=== PATIENT | female | born 1980 | race Caucasian/White ===

== ENCOUNTER 2016-08-31 11:00 | Emergency (ER) | payer SELFPAY ==
[~2016-08-31] VITALS: Ht 175.3 cm; Wt 75.0 kg
[2016-08-31 11:20] LABS: BASOPHILS % (AUTO) 0 % (0-2); EOSINOPHILS % (AUTO) 1 % (0-4); LYMPHOCYTES # (AUTO) 1.9 X10^3; MEAN CORPUSCULAR HEMOGLOBIN 28.4 PG (26.0-34.0); MEAN CORPUSCULAR HGB CONC 33.9 g/dL (31.0-37.0); MEAN CORPUSCULAR VOLUME 84 FL (80-100); MEAN PLATELET VOLUME 10.5 FL (6.0-9.5); MONOCYTES # (AUTO) 0.4 X10^3; MONOCYTES % (AUTO) 5 % (3-11); NEUTROPHILS # (AUTO) 5.5 X10^3; NEUTROPHILS % (AUTO) 70 % (51-67); PLATELET COUNT 248 10^3uL (150-450); WHITE BLOOD COUNT 7.75 10^3uL (4.0-11.0)
[2016-08-31 11:39] LABS: ALBUMIN 4.7 g/dL (3.4-5.0); ANION GAP 22.5 MEQ/L (3-15); CALCULATED IONIZED CALCIUM 4.1 mg/dL (3.8-4.6); TOTAL PROTEIN 7.9 g/dL (6.4-8.5)
[2016-08-31] MEDS ORDERED: INSULIN LISPRO 1 UNIT/0.01 ML (HUMALOG) DOSE SC ONE (11:45)
[2016-08-31 13:47] VITALS: BP 118/80
== END 2016-08-31 12:51 | disposition home or self-care (01) ==
LOC: ED 11:04
DX: M22.41 Chondromalacia patellae, right knee (principal); E11.65 Type 2 diabetes mellitus with hyperglycemia; E87.5 Hyperkalemia; Z79.4 Long term (current) use of insulin
CPT/HCPCS: 36415; 73564; 80053; 83036; 84443; 85025; 86140; 99283; J1815; 99282

== ENCOUNTER → 2016-08-31 | Outpatient (CLI) | payer SELFPAY | LOC: EMS 10:50 | PROVIDERS: ATTEND Family Medicine | DX: R29.898 Other symptoms and signs involving the musculoskeletal system (principal); E11.21 Type 2 diabetes mellitus with diabetic nephropathy ==